=== PATIENT | male | born 1995 | race Caucasian/White ===

== ENCOUNTER 2018-03-08 12:00 | Outpatient (RCR) | payer BC, OTHER, SELFPAY ==
--- NOTE | 2018-02-15 14:44 | HP.PTEVAL_ITS ---
Patient's Visit Information REBECCA GOODMAN is a 22 year old M referred to Physical Therapy by AZAEL BOWLING with a diagnosis of Sciatica. Date of Evaluation: 02/15/18 Physical Therapist: Carmel Espinal - Visit Plan Frequency: 3x /Week Duration: 3 Weeks Plan: Progress Slowly- in/out of the pool throughout treatment- - Subjective Subjective: 2 months ago was jumping out of a truck and felt a pop. Took about a week and a half- felt okay. Pulled on a calf last Monday and its back to where it was before or maybe even worse. Has been to the hospital 2x. Took x- rays which were negative. He went to a chiro which also did not help. So the last 2 weeks have been pretty miserable. Hard time rolling over in bed. Only place he is comfortable flat on his back. Worst: 07/18 Agg: anything other than being flat on his back. Tried to walk about 15 feet in the field yesterday and had to go down on his knees. Stomach feels like he is pinching and it makes it worse. Feels most of the pain on the right side. The past few days its been in his back and all the down his right leg. Described pain as excruciating, achy and sharp pains. Makes him physically ill- his whole right leg throbs. Numbness along the right buttock and down the right leg to the knee. When pulling on the calf he was crouched down and pulled. No MRI only x-rays. No injections- they gave him medications (muscle relaxer, anti-inflammatory, pain medication). Reports its hard to have a bowel movement due to pain. No change in frequency or urination it just hurts. Had low back problems a long time ago - scoliosis and was told poor core muscles- went to PT, chiro and had medication and it got better- was prayed over and it we away- 4-5 years ago. 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 PMHx : none Meds: see medications. - Objective Posture: FH, RS, Increased kyphosis- does not sit still- shifts to the left off of the right leg- unable to correct without signficant pain down the right LE. Gait: deviated- decreased stance on the right LE. ROM: Flexion: hands to mid thigh with significant pain, extn: decreased by 50% with pain, SB to the left/ right decreased by 50% rotation: decreased by 50%. Hip/knee/Ankle: WNL. Strength: left: 5/5 Right: 4/5 throughout ankle/knee and hip Core: poor. Reflexes: WNL Sensation: decreased on the right. Dural Signs: positive on the right. Palpation: signficant tenderness throughout lumbar spine paraspinals, gluts, ITBand and calf - Goals Goal 1:: Patient will be I with HEP and progression Goal 2:: Decreased complaints of pain to 2/10 for 1 week in back and leg Goal Time Frame: 4-6 Weeks Goal 3:: Patient will maintain proper posture for 1 week Goal Time Frame: 4-6 Weeks - Rehabilitation Potential Physical Therapy Diagnosis: Patient presents with hypomobility- he has decreased ROM, strength and muscular endurance leading to poor posture and increased pain with ADL's. Rehabilitation Potential: Fair - Anticipated Interventions Patient/Client Instruction: Educate patient on: Benefits of Fitness Program For the Purpose of:: To increase tolerance to activity/condition/position Therapeutic Exercise to Include: Strength training, Endurance training, Body mechanics, Postural training, Flexibilty training, Gait and locomotor training, In an aquatic setting, Active ROM, Dynamic Lumbar Stabilization For the Purpose of:: To improve muscle performance and motor function Thank you for the opportunity to evaluate your patient. For Medicare and Medicare HMO plans, please review the plan of care and approve it. It will need to be FAXED BACK to us at [phone] for Medicare purposes. Please let me know if there are questions or concerns regarding this plan of care. Physician Signature: Date:
--- NOTE | 2018-02-22 13:16 | HP.PTREVAL_ITS ---
AZAEL BOWLING, It has been my pleasure to treat REBECCA GOODMAN over the last 5 visits for Sciatica. Please see the progress note below for an update on the physical therapy plan of care! Subjective: PATIENT REPORTS HE IS NO BETTER AND NO WORSE. ONLY TEMPORARY RELIEF LAST SESSION AND BY THE TME HE GOT TO HIS TRUCK THE PAIN WAS BACK TO BEING BAD. Objective/Function: PATIENT IS NOT IMPROVING. HE CONTINUES TO HAVE DECREASED LUMBAR ROM, DECREASED RIGHT LE SENSATION, RIGHT LE POSITIVE DURAL SIGNS AND RIGHT LE WEAKNESS. HE HAS SIGNIFICANT LUMBAR MUSCLE SPASMS AND IS UNABLE TO GET COMFORTABLE IN ANY POSITION FOR MORE THAN A FEW MOMENTS INDEP'LY. HE DID HOWEVER RESPOND TO MCKENZIES EXTENSION AND LATERAL PRINCIPLES OF TREATMENT TODAY AND THE RIGHT LE REMAINED BETTER A RESULT TO A SMALL DEGREE. HE APPEARS TO HAVE A LARGE RIGHT LATERAL COMPONENT. PATIENT WAS INSTRUCTED IN REP EIL WHILE PRONE IN A RIGHT LATERAL SHIFT X 10 TO 20 REPS EVERY HOUR OR SO TOLERATED. HE WAS WELL EDUCATED BY THIS PT IN AVOIDANCE OF PERIPHERALIZATION OF SX'S. THE PATIENT AND I DECIDED TO CHANGE TO LAND APPOINTMENTS AND TRY MORE OF THE POLO PRINCIPLES INDICATED AND MODALITIES (US AND E-STIM WITH CP OR MH) NEEDED. THIS PT CALLED AND LEFT A VOICEMAIL AT PATIENTS DR'S OFFICE TO UPDATE THEM ON PATIENTS LACK OF PROGRESS TO THIS POINT. Plan Plan: SEE ABOVE. Goals Goal 1:: Patient will be I with HEP and progression Goal 2:: Decreased complaints of pain to 2/10 for 1 week in back and leg Goal Time Frame: 4-6 Weeks Goal 3:: Patient will maintain proper posture for 1 week Goal Time Frame: 4-6 Weeks Anticipated Interventions Patient/Client Instruction: Educate patient on: Benefits of Fitness Program For the Purpose of:: To increase tolerance to activity/condition/position Therapeutic Exercise to Include: Strength training, Endurance training, Body mechanics, Postural training, Flexibilty training, Gait and locomotor training, In an aquatic setting, Active ROM, Dynamic Lumbar Stabilization For the Purpose of:: To improve muscle performance and motor function Please do not hesitate to contact me at [phone] by phone or Fax: if you have questions or concerns regarding this new plan of care! Sincerely, Nayla Leal
--- NOTE | 2018-07-05 12:51 | HP.PT.NRP ---
HP - Discharge Summary (1) - Patient Information REBECCA GOODMAN was seen in my office for initial evaluation on 02/15/18. The following Plan of Care was established for this patient: Initial Frequency: 3x /Week Initial Duration: 3 Weeks - Anticipated Interventions Patient/Client Instruction: Educate patient on: Benefits of Fitness Program For the Purpose of:: To increase tolerance to activity/condition/position Therapeutic Exercise to Include: Strength training, Endurance training, Body mechanics, Postural training, Flexibilty training, Gait and locomotor training, In an aquatic setting, Active ROM, Dynamic Lumbar Stabilization For the Purpose of:: To improve muscle performance and motor function This patient was last seen in our office 03/08/18. Pertinent comments regarding their Physical therapy will appear below: This patient has not returned to Physical Therapy and is appropriate to return to MD for further follow-up as needed. At this point I will be discontinuing this patient from physical therapy. I would be happy to see this patient again in the future if found appropriate by the physician. Thank you! Nayla Lela
== END 2018-03-08 19:00 | disposition home or self-care (01) ==
LOC: PT 12:00
DX: M62.838 Other muscle spasm (principal)
CPT/HCPCS: 97014; 97035; 97113; 97162; 97530; G0283